=== PATIENT | female | born 1985 | race African-American/Black ===

== ENCOUNTER 2020-10-01 15:12 | Emergency (ER) | payer OTHER ==
[~2020-10-01] VITALS: Ht 165.1 cm; Wt 86.4 kg
[2020-10-01] MEDS ORDERED: HYDR-3831 PO (15:26)
[2020-10-01] MEDS ORDERED: METO-558 PO (15:26)
[2020-10-01] MEDS ORDERED: BUSP15 PO (15:26)
[2020-10-01] MEDS ORDERED: HYDROCODONE/ACETAMINOPHEN 5-325 MG TABLET PO ONE (16:30)
[2020-10-01] MEDS ORDERED: PERTUSS(ACELL),DIPH,TET VAC/PF 0.5 ML SYRINGE IM. ONE (16:30)
[2020-10-01 19:05] VITALS: BP 121/82
== END 2020-10-01 19:05 | disposition home or self-care (01) ==
LOC: EMS 15:15
DX: S01.511A Laceration without foreign body of lip, initial encounter (principal); S60.011A Contusion of right thumb without damage to nail, initial encounter; F17.210 Nicotine dependence, cigarettes, uncomplicated; F12.90 Cannabis use, unspecified, uncomplicated; F41.9 Anxiety disorder, unspecified; Z79.899 Other long term (current) drug therapy; Y04.0XXA Assault by unarmed brawl or fight, initial encounter; Y93.89 Activity, other specified; Y92.89 Other specified places as the place of occurrence of the external cause; Y99.8 Other external cause status
CPT/HCPCS: 90471; 90715; 99283